=== PATIENT | female | born 1955 | race Two or more races ===

== ENCOUNTER 2018-04-21 16:14 | Emergency (ER) | payer SELFPAY ==
[~2018-04-21] VITALS: Ht 167.6 cm; Wt 75.7 kg
[2018-04-21 16:47] VITALS: BP 167/93
== END 2018-04-21 18:19 | disposition home or self-care (01) ==
LOC: ER 16:16
DX: S09.8XXA Other specified injuries of head, initial encounter (principal); M54.2 Cervicalgia; V49.49XA Driver injured in collision with other motor vehicles in traffic accident, initial encounter; Y93.89 Activity, other specified; Y92.413 State road as the place of occurrence of the external cause; Y99.8 Other external cause status
CPT/HCPCS: 70450-TC; 72125-TC; A4606; Z7610